=== PATIENT | female | born 1975 ===

== ENCOUNTER 2019-02-25 16:19 | Emergency (ER) | payer SELFPAY ==
[2019-02-25 16:51] VITALS: BP 150/86
--- NOTE | 2019-02-25 17:10 | UC ---
Throat Pain/Nasal Romero HPI - HPI Summary HPI Summary: Pt c/o nasal congestion, sinus pressure, pain, sT, cough and generalized malaise X 4 days. - History of Current Complaint Chief Complaint: UCRespiratory Stated Complaint: ST/HOT FLASHES Time Seen by Provider: 02/25/19 16:40 Hx Obtained From: Patient Hx Last Menstrual Period: 02/07/19 ?: No Onset/Duration: Gradual Onset, Lasting Days, Still Present Severity: Moderate Pain Intensity: 7 Cough: Nonproductive Associated Signs & Symptoms: Positive: Dysphagia, Sinus Discomfort, Nasal Discharge Related History: Seasonal Allergies - Epiglottits Risk Factors Epiglottis Risk Factors: Negative - Allergies/Home Medications Allergies/Adverse Reactions: Allergies Allergy/AdvReac Type Severity Reaction Status Date / Time seasonal allergies Allergy Unknown Unknown Uncoded 02/25/19 16:37 Reaction Details PMH/Surg Hx/FS Hx/Imm Hx Previously Healthy: Yes - Surgical History Surgical History: Yes Surgery Procedure, Year, and Place: 2 C-SECTIONS, 1995, 2001 - Family History Known Family History: Positive: Cardiac Disease - Social History Occupation: Employed Full-time Lives: With Family Alcohol Use: Weekly Substance Use Type: None Smoking Status (MU): Heavy Every Day Tobacco Smoker Type: Cigarettes Amount Used/How Often: 1/2 PPD Have You Smoked in the Last Year: Yes Household Exposure Type: Cigarettes Review of Systems All Other Systems Reviewed And Are Negative: Yes Constitutional: Positive: Fatigue, Other - hot falshes Skin: Positive: Negative Eyes: Positive: Negative ENT: Positive: Sore Throat, Sinus Congestion, Sinus Pain/Tenderness Respiratory: Positive: Cough Cardiovascular: Positive: Negative Gastrointestinal: Positive: Negative Genitourinary: Positive: Negative Motor: Positive: Negative Neurovascular: Positive: Negative Musculoskeletal: Positive: Negative Neurological: Positive: Negative Psychological: Positive: Negative Is Patient Immunocompromised?: No Physical Exam Triage Information Reviewed: Yes Appearance: Ill-Appearing Vital Signs: Initial Vital Signs Temp 98.5 F 02/25/19 16:39 Pulse 89 02/25/19 16:39 Resp 18 02/25/19 16:39 BP 150/86 02/25/19 16:39 Pulse Ox 99 02/25/19 16:39 Vital Signs Reviewed: Yes Eye Exam: Normal ENT: Positive: Nasal congestion, Sinus tenderness, Other - PND Dental Exam: Normal Neck exam: Normal Respiratory Exam: Normal Cardiovascular Exam: Normal Musculoskeletal Exam: Normal Neurological Exam: Normal Psychological Exam: Normal Skin Exam: Normal Throat Pain/Nasal Course/Dx - Differential Dx/Diagnosis Differential Diagnosis/HQI/PQRI: Sinusitis, Tonsillitis Provider Diagnosis: Sinusitis Discharge - Sign-Out/Discharge Documenting (check all that apply): Patient Departure All imaging exams completed and their final reports reviewed: No Studies - Discharge Plan Condition: Stable Disposition: HOME Prescriptions: Amoxicillin PO (*) [Amoxicillin 875 MG (*)] 875 mg PO Q12H #20 tab Benzonatate CAP* [Tessalon 100 MG CAP*] 100 mg PO Q8H PRN #30 cap PRN Reason: Cough Cetirizine* [ZyrTEC 10 MG TAB*] 10 mg PO DAILY #10 tab guaiFENesin ER TAB [Mucinex*] 600 mg PO Q12H #20 tab.er Patient Education Materials: Sinusitis (ED), Acute Cough (ED) Referrals: [facility] [Outside] No Primary Care Phys,NOPCP [Primary Care Provider] - - Billing Disposition and Condition Condition: STABLE Disposition: Home
== END 2019-02-25 17:19 | disposition home or self-care (01) ==
LOC: UCCORT 16:19
DX: J32.9 Chronic sinusitis, unspecified (principal); F17.210 Nicotine dependence, cigarettes, uncomplicated
CPT/HCPCS: 99202; G0463